=== PATIENT | male | born 1965 | race Two or more races ===

== ENCOUNTER 2024-11-24 14:42 | Emergency (ER) | payer OTHER, SELFPAY ==
[2024-11-24] VITALS (8 sets, daily range): BP systolic 125–178; BP diastolic 66–91; PULSE 66–102; RESP 12–18; TEMP 36.6–36.9; O2SAT 98–100
--- NOTE | ~2024-11-24 | XR_ITS ---
EXAM: XR wrist RT min 3V DATE: 11/24/2024 15:22 HISTORY: Fall . COMPARISON: None available. FINDINGS: Normal mineralization. Comminuted, intra-articular, impacted distal right radial metaphysi s fracture, with 6 more medial posterior displacement and 41 degrees posterior angulation. No lytic o r blastic lesion. Joint spaces are maintained. No erosion or periosteal change. Soft tissues within n ormal limits. IMPRESSION: Comminuted, impacted, displaced, and angulated intra-articular fracture of the distal rig ht radius. Reviewed, dictated and finalized at location K. IMPRESSION: Comminuted, impacted, displaced, and angulated intra-articular frac ture of the distal right radius.
--- NOTE | ~2024-11-24 | XR_ITS ---
EXAM: XR wrist RT 2V DATE: 11/24/2024 18:30 HISTORY: POST REDUCTION . COMPARISON: Same date at 3:18 PM. FINDINGS/IMPRESSION: Detail obscured by overlying cast material. Successful interval reduction of the intra-articular distal right radial fracture into near-anatomic alignment. Distal radial bone island . Reviewed, dictated and finalized at location K.
--- NOTE | 2024-11-24 14:51 | PC.NURSE ---
Ice pack given in Triage
--- NOTE | 2024-11-24 16:28 | ED_ITS ---
HPI - Extremity Injury (Upper) General Chief Complaint: Extremity Injury, Upper <Apryl Concepcion PA-C - Last Filed: 11/24/24 19:31> Stated Complaint: Injury to right wrist due to fall <JANNY Gagnon Last Filed: 11/24/24 19:31> Time Seen by Provider: 11/24/24 16:28 <JANNY Gagnon Last Filed: 11/24/24 19:31> Focused HPI: This is a 58 year old male that presents to the ER for right wrist pain after a fall today. Reports he slipped on a sidewalk. Caught himself with his right wrist. Reports decreased ROM, swelling. GENERAL: Well-appearing, well-nourished, and in no acute distress. HEAD: Normocephalic, atraumatic. CHEST: Clear to auscultation. ?No respiratory distress. HEART: Regular rate and rhythm.? NEURO: ?Alert and oriented x3. Patient screened in triage and initial orders placed.? ?Additional care and disposition to be based upon?diagnostic testing and treatment. <Apryl Concepcion PA-C - Last Filed: 11/24/24 19:31> Focused HPI: This is a 58 year old male that presents to the ER for right wrist pain after a fall today. Reports he slipped on a sidewalk. Caught himself with his right wrist. Reports decreased ROM, swelling. GENERAL: Well-appearing, well-nourished, and in no acute distress. HEAD: Normocephalic, atraumatic. CHEST: Clear to auscultation. ?No respiratory distress. HEART: Regular rate and rhythm.? NEURO: ?Alert and oriented x3. Patient screened in triage and initial orders placed.? ?Additional care and disposition to be based upon?diagnostic testing and treatment. <JANNY Cano Last Filed: 11/24/24 20:37> Source: patient and family <JANNY Cano Last Filed: 11/24/24 20:37> Mode of arrival: ambulatory <JANNY Cano Last Filed: 11/24/24 20:37> Limitations: no limitations and language barrier <Ivis Storm PA-C - Last Filed: 11/24/24 20:37> History of Present Illness HPI narrative: Agree with above HPI. Patient speaks in [place]e. Family at bedside assisted in translation. [employer] roadmaster offered and declined. Patient denies any other injuries. Denies numbness. Denies HI/LOC. <Ivis Storm PA-C - Last Filed: 11/24/24 20:37> Related Data Allergies/Adverse Reactions: Allergies Allergy/AdvReac Type Severity Reaction Status Date / Time No Known Allergies Allergy Verified 11/24/24 16:45 <Apryl Concepcion PA-C - Last Filed: 11/24/24 19:31> Review of Systems Review of Systems: All systems reviewed & are unremarkable except as noted in HPI. <Ivis Storm PA-C - Last Filed: 11/24/24 20:37> All systems reviewed & are unremarkable except as noted in HPI and below <Ivis Storm PA-C - Last Filed: 11/24/24 20:37> [facility] Past Medical History Medical History: Medical History No active medical problems <Apryl Concepcion PA-C - Last Filed: 11/24/24 19:31> Social History Social History: Social History Smoking status: Never smoker <Apryl Concepcion PA-C - Last Filed: 11/24/24 19:31> Exam Narrative: GENERAL: Well appearing, obese with BMI of 32.0, non-toxic, in no acute distress. HEAD: Normocephalic, atraumatic. RESPIRATORY: Airway patent, respirations nonlabored. CARDIOVASCULAR: Regular rate and rhythm without murmurs, rubs, or gallops. Radial pulses strong and easily palpable MUSCULOSKELETAL: Limited ROM of R wrist d/t pain. Colles fx deformity to R wrist with focal tenderness and swelling to R distal radius region. Sensation intact throughout hand and fingers. Cap refill intact. Able to wiggle fingers. No TTP over R elbow/shoulder joints. SKIN: Warm, dry, normal color. NEURO: A&O X3. Speech clear. No ataxic movements. PSYCHIATRIC: Appropriate mood and affect. Normal interaction. <Ivis Storm PA-C - Last Filed: 11/24/24 20:37> Course INSPECTOR PLUMBING/PA Physician Supervision For this patient encounter, I reviewed the INSPECTOR PLUMBING or PA documentation, treatment plan, and medical decision making; and I had [id number] time with this patient. I was present for the sedation reduction and splinting <Zeeshan Leroy MD - Last Filed: 11/24/24 21:57> Vital Signs Vital signs: Vital Signs Temperature 97.9 F 11/24/24 15: Pulse Rate 80 11/24/24 15:29 Respiratory Rate 18 11/24/24 15:29 Blood Pressure 178/83 H 11/24/24 15:29 Pulse Oximetry 100 11/24/24 15:29 Oxygen Delivery Room Air 11/24/24 15:29 Temperature 98.5 F 11/24/24 19:26 Pulse Rate 66 11/24/24 19:26 Respiratory Rate 14 11/24/24 19:26 Blood Pressure 140/76 11/24/24 19:26 Pulse Oximetry 100 11/24/24 19:26 Oxygen Delivery Room Air 11/24/24 18:47 Oxygen Flow Rate 3 11/24/24 18:20 <Apryl Concepcion PA-C - Last Filed: 11/24/24 19:31> Vital Signs Temperature 97.9 F 11/24/24 15:29 Pulse Rate 80 11/24/24 15:29 Respiratory Rate 18 11/24/24 15:29 Blood Pressure 178/83 H 11/24/24 15:29 Pulse Oximetry 100 11/24/24 15:29 Oxygen Delivery Room Air 11/24/24 15:29 Temperature 98.5 F 11/24/24 19:26 Pulse Rate 66 11/24/24 19:26 Respiratory Rate 14 11/24/24 19:26 Blood Pressure 140/76 11/24/24 19:26 Pulse Oximetry 100 11/24/24 19:26 Oxygen Delivery Room Air 11/24/24 18:47 Oxygen Flow Rate 3 11/24/24 18:20 <Ivis Storm PA-C - Last Filed: 11/24/24 20:37> Vital Signs Temperature 97.9 F 11/24/24 15:29 Pulse Rate 80 11/24/24 15:29 Respiratory Rate 18 11/24/24 15:29 Blood Pressure 178/83 H 11/24/24 15:29 Pulse Oximetry 100 11/24/24 15:29 Oxygen Delivery Room Air 11/24/24 15:29 Temperature 98.5 F 11/24/24 19:26 Pulse Rate 66 11/24/24 19:26 Respiratory Rate 14 11/24/24 19:26 Blood Pressure 140/76 11/24/24 19:26 Pulse Oximetry 100 11/24/24 19:26 Oxygen Delivery Room Air 11/24/24 18:47 Oxygen Flow Rate 3 11/24/24 18:20 <Zeeshan Leroy MD - Last Filed: 11/24/24 21:57> Procedures Orthopedic Fracture Reduction Fracture #1: Fracture Reduction date: 11/24/24 <Ivis Storm PA-C - Last Filed: 11/24/24 20:37> Fracture Reduction time: 18:20 <Ivis Storm PA-C - Last Filed: 11/24/24 20:37> Time Out Performed: Yes <Ivis Storm PA-C - Last Filed: 11/24/24 20:37> Side: right <Ivis Storm PA-C - Last Filed: 11/24/24 20:37> Fracture Reduction Location: radius <Ivis Storm PA-C - Last Filed: 11/24/24 20:37> Analgesia: procedural sedation <JANNY Cano Last Filed: 11/24/24 20:37> Pre-Procedure Neuro Vascular Exam: normal <JANNY Cano Last Filed: 11/24/24 20:37> Technique: direct manipulation <JANNY Cano Last Filed: 11/24/24 20:37> Post Reduction X-rays Demonstrate: anatomical reduction <Ivis Storm PA-C - Last Filed: 11/24/24 20:37> Post-reduction neuro exam: intact and no change <JANNY Cano Last Filed: 11/24/24 20:37> Post-reduction vascular exam: intact and no change <JANNY Cano Last Filed: 11/24/24 20:37> Splint Applied: Yes <JANNY Cano Last Filed: 11/24/24 20:37> Patient Tolerated Procedure: well and no complications <JANNY Cano Last Filed: 11/24/24 20:37> Orthopedic Splinting/Casting Injury #1: Splinting/Casting Date: 11/24/24 <JANNY Cano Last Filed: 11/24/24 20:37> Splinting/Casting Time: 18:25 <JANNY Cano Last Filed: 11/24/24 20:37> Side: right <JANNY Cano Last Filed: 11/24/24 20:37> Upper Extremity Injury Location: wrist <JANNY Cano Last Filed: 11/24/24 20:37> Upper Extremity Immobilizer: volar splint <JANNY Cano Last Filed: 11/24/24 20:37> Splint: customized in ED <JANNY Cano Last Filed: 11/24/24 20:37> Pre-Procedure Neuro Vascular Exam: normal <JANNY Cano Last Filed: 11/24/24 20:37> Post-Procedure Neuro Vascular Exam: normal <JANNY Cano Last Filed: 11/24/24 20:37> Other Orthopedic Equipment: other (sling) <JANNY Cano Last Filed: 11/24/24 20:37> Procedural Sedation Procedural Sedation #1: Presedation Evaluation: APPEARANCE: Well appearing, no pain, no distress, well-nourished. HEAD: normocephalic, atraumatic. EYES: PERRLA/EOMI, conjunctivae clear. NOSE: Normal no drainage EARS:TMS clear with good light reflex. THROAT: Pharynx clear, no exudate. NECK: Supple. No adenopathy, no masses. RESPIRATORY: Airway patent, respirations nonlabored. Clear to auscultation bilaterally, no rales, rhonchi, wheezing. CARDIOVASCULAR: Regular rate and rhythm without murmurs rubs or gallops. ABDOMINAL: Soft, nontender, nondistended, normal bowel sounds MUSCULOSKELETAL: Right wrist for NEURO: Alert. Cranial nerves II through XII intact. Good gait. Good coordination SKIN: Warm, dry. Normal Color <Zeeshan Leroy MD - Last Filed: 11/24/24 21:57> Procedure: Reduction and splinting of right wrist fracture <Zeeshan Leroy MD - Last Filed: 11/24/24 21:57> Time Out: Time-out was performed <Zeeshan Leroy MD - Last Filed: 11/24/24 21:57> Informed Consent Obtained: yes <Zeeshan Leroy MD - Last Filed: 11/24/24 21:57> Equipment in Room: bag and mask, capnography, monitor tech, crash cart, oxygen, pulse oximeter and suction <Zeeshan Leroy MD - Last Filed: 11/24/24 21:57> Plan for Sedation: moderate sedation <Zeeshan Leroy MD - Last Filed: 11/24/24 21:57> ASA Class: II <Zeeshan Leroy MD - Last Filed: 11/24/24 21:57> Mallampati Classification: class I <Zeeshan Leroy MD - Last Filed: 11/24/24 21:57> NPO Status: last solid food (hours ago) <Zeeshan Leroy MD - Last Filed: 11/24/24 21:57> Explanation to Patient/Family: Risk/Benefits/Alternatives <Zeeshan Leroy MD - Last Filed: 21:57> Pt. Educated on Procedural Sedation: Yes <Zeeshan Leroy MD - Last Filed: 11/24/24 21:57> Re-evaluated immediately prior: Yes <Zeeshan Leroy MD - Last Filed: 11/24/24 21:57> Preparation: monitor tech applied, pulse oximeter, capnometry used, supplemental O2 applied and reversal agents at bedside <Zeeshan Leroy MD - Last Filed: 11/24/24 21:57> IV Propofol dose (mg): 200 <Zeeshan Leroy MD - Last Filed: 11/24/24 21:57> Patient Tolerated Procedure: well and no complications <Zeeshan Leroy MD - Last Filed: 11/24/24 21:57> Complications: none <Zeeshan Leroy MD - Last Filed: 11/24/24 21:57> Total Sedation Time (min): 15 <Zeeshan Leroy MD - Last Filed: 11/24/24 21:57> MDM - Extremity Injury (Upper) MDM Narrative Medical decision making narrative: XR showing comminuted angulated and displaced distal radius fx. Patient is neurovascularly intact. Good radial pulses. Discussed imaging findings with patient. Discussed need for fx reduction. Discussed hematoma block+ IV pain medication+ manual manipulation versus procedural sedation. Discussed risks and benefits of both. Patient would prefer to proceed with procedural sedation. Consent signed with [email or web address] roadmaster. Procedure sedation performed by Dr. Zeeshan Leroy, see procedure notes. Patient placed in short-arm volar splint. Postreduction films show anatomic alignment of fracture fragments. Patient given sling for comfort and support. Advised he will need to closely follow-up with orthopedic surgery for further evaluation management of fracture. Patient is returning home to [facility] on Saturday. Discussed following up with lawn care specialist there [place]. He is in agreement with this. Will prescribe pain medication for home. Given return precautions. Discharged in stable condition. <Ivis Storm PA-C - Last Filed: 11/24/24 20:37> Medical Records Attestation: I reviewed the patient's medical records. <Ivis Storm PA-C - Last Filed: 11/24/24 20:37> Imaging Data Attestation: I personally reviewed and interpreted this imaging study as follows: <Ivis Storm PA-C - Last Filed: 11/24/24 20:37> Radiologist's impression: ITS Impressions Wrist X-Ray 11/24/24 15:25 IMPRESSION: Comminuted, impacted, displaced, and angulated intra-articular fracture of the distal right radius. ADDENDUM: 11/24/24 1905 The findings section contains a voice recognition error, 6 more is corrected to 6 mm <JANNY Cano Last Filed: 11/24/24 20:37> Discharge Plan Discharge Clinical Impression: Fall from ground level Fracture of distal end of radius Qualifiers: Encounter type: initial encounter Fracture type: closed Fracture morphology: Colles' Laterality: right Qualified Code(s): S52.531A - Colles' fracture of right radius, initial encounter for closed fracture <JANNY Gagnon Last Filed: 11/24/24 19:31> Patient Disposition: Home <JANNY Gagnon Last Filed: 11/24/24 19:31> Condition: Stable <JANNY Gagnon Last Filed: 11/24/24 19:31> Instructions: Antibiotic Form, Wrist Fracture in Adults (ED), How to Use a Sling (ED), Splint Care (ED) <JANNY Gagnon Last Filed: 11/24/24 19:31> Additional Instructions: You will need to follow-up with lawn care specialist as soon as possible for further management of wrist fracture. Recommend Tylenol/ibuprofen as needed for pain. Oxycodone as needed for more severe pain. Elevate arm frequently, utilize ice to wrist. Return to ED if you experience worsening or severe pain or swelling, numbness, recurrent fall or injury, or any other symptoms of concern. <JANNY Gagnon Last Filed: 11/24/24 19:31> Patient Language: [place]alese <JANNY Gagnon Last Filed: 11/24/24 19:31> Prescriptions: New oxycodone 5 mg tablet 5 mg PO Q6H PRN (Reason: pain) Qty: 20 0RF <JANNY Gagnon Last Filed: 11/24/24 19:31> Follow-up/Referrals: PHYSICIAN,[employer] ASSEMBLY MACHINE OPERATOR [Primary Care Provider] - <JANNY Gagnon Last Filed: 11/24/24 19:31> Time of Disposition: 19:08 <Apryl Concepcion PA-C - Last Filed: 11/24/24 19:31> 19:08 <Ivis Storm PA-C - Last Filed: 11/24/24 20:37> 19:08 <Zeeshan Leroy MD - Last Filed: 11/24/24 21:57>
[2024-11-24] MEDS: HYDROcodone/acetaminophen (*CRX) 5-325 MG TABLET 1 TAB PO (16:46)
[2024-11-24] MEDS: SODIUM CHLORIDE 0.9% IV 1,000 ML 999 ML IV CONT (18:05)
--- NOTE | 2024-11-24 18:12 | PC.NURSE ---
80mg propofol given IV push by EDP
--- NOTE | 2024-11-24 18:13 | PC.NURSE ---
20mg propofol given IV push by EDP
--- NOTE | 2024-11-24 18:14 | PC.NURSE ---
50mg propofol given IV push by EDP
--- NOTE | 2024-11-24 18:17 | PC.NURSE ---
50 mg propofol given IV push by EDP
--- NOTE | 2024-11-24 18:32 | PC.NURSE ---
20mg propofol given IV push by EDP
== END 2024-11-24 19:29 | disposition home or self-care (01) ==
PROVIDERS: Emergency Provider Physician Assistant
DX: S52.531A Colles' fracture of right radius, initial encounter for closed fracture (principal); W01.0XXA Fall on same level from slipping, tripping and stumbling without subsequent striking against object, initial encounter
CPT/HCPCS: 25605; 73100; 73110; 96374; 99285; A4565; A9270; J7030